=== PATIENT | female | born 1975 | race Caucasian/White ===

== ENCOUNTER 2017-09-29 16:05 | Emergency (ER) | payer MEDICARE ==
[2017-09-29 16:17] VITALS: BP 107/53
--- NOTE | 2017-09-29 16:34 | ED Physician Documentation ---
History of Present Illness - Stated complaint Stated Complaint: ANXIETY - Chief complaint Chief Complaint: General - History obtained from History obtained from: Patient - History of Present Illness Timing: Today Pain level max: 0 Pain level now: 0 Improved by: nothing Worsened by: nothing - Additonal information Additional information: Patient is a 41-year-old female who presents to the emergency department stating that she has pelvic speaking anxiety. 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 She was speaking with a family friend who has a family practice physician who recommended she come to the emergency department for a beta- shelbi. She does not want to be on benzodiazepines. Does have a history of asthma. Denies any other symptoms at this time. Review of Systems : denies: Now EGA Skin: denies: Rash PD PAST MEDICAL HISTORY - Past Medical History Past Medical History: Yes Respiratory: None Neuro: None Endocrine/Autoimmune: HyPOthyroidism GI: None [employer] SERVICE: None : None HEENT: None Psych: None Musculoskeletal: None Derm: None - Past Surgical History Past Surgical History: Yes HEENT: Tonsil/Adenoidectomy - Present Medications Home Medications: Ambulatory Orders Medication Instructions Recorded Confirmed Levothyroxine [Synthroid] 1 tab PO DAILY 09/29/17 09/29/17 Liothyronine [Cytomel] 1 tab PO DAILY 09/29/17 09/29/17 Propranolol [Inderal] 5 mg PO DAILY PRN #2 tablet 09/29/17 - Allergies Allergies/Adverse Reactions: Allergies Allergy/AdvReac Type Severity Reaction Status Date / Time No Known Drug Allergies Allergy Verified 09/29/17 16:17 - Social History Does the pt smoke?: No Smoking Status: Never smoker Does the pt drink ETOH?: Yes Does the pt have substance abuse?: No - Immunizations Immunizations are current?: Yes - POLST Patient has POLST: No PD ED PE NORMAL - Vitals Vital signs reviewed: Yes - General General: Alert and oriented X 3, No acute distress - Neck Neck: Supple, no meningeal sign - Cardiac Cardiac: RRR - Respiratory Respiratory: No respiratory distress, Clear bilaterally - Derm Derm: Warm and dry - Neuro Neuro: Alert and oriented X 3 - Psych Psych: Normal mood, Normal affect Results - Vitals Vitals: Vital Signs - 24 hr 09/29/17 16:11 Temperature 36.5 C Heart Rate 71 Respiratory 14 Rate Blood Pressure 107/53 L O2 Saturation 99 PD MEDICAL DECISION MAKING - ED course Complexity details: considered differential, d/w patient ED course: Patient is a 41 year old female with speaking anxiety. Will trial on small does of propranolol for anxiety. Discussed risks of medication including hypotension , bradycardia, interference with asthma medications, and worsening of her symptoms. Patient will follow up with PCP. Patient counseled regarding signs and symptoms for which I believe and urgent re-evaluation would be necessary. Patient with good understanding of and agreement to plan and is comfortable going home at this time This document was made in part using voice recognition software. While efforts are made to proofread this document, sound alike and grammatical errors may occur. Departure - Departure Disposition: 01 Home, Self Care Clinical Impression: Anxiety Condition: Good Instructions: ED Stress React Follow-Up: your,doctor in 3 days [Other] Prescriptions: Propranolol [Inderal] 5 mg PO DAILY PRN #2 tablet PRN Reason: anxiety Comments: Follow up with your doctor for further medications. As we discussed this medication my decrease your blood pressure, worsen your asthma and decrease the effectiveness of your asthma medications. Use it sparingly. Return if you worsen.
== END 2017-09-29 17:05 | disposition home or self-care (01) ==
LOC: ED 16:05
DX: F41.9 Anxiety disorder, unspecified (principal)
CPT/HCPCS: 99283